=== PATIENT | female | born 1960 | race Caucasian/White ===

== ENCOUNTER 2018-01-21 16:18 | Inpatient (IN) | payer OTHER ==
[2018-01-21] MEDS ORDERED: IPRATROPIUM BROM 0.5MG/2.5ML ONE (17:24)
[2018-01-21] MEDS ORDERED: ALBUTEROL 2.5 MG/3 ML NEB SOL ONE (17:24)
[2018-01-21 17:28] LABS: Absolute Lymphocytes (CBC) 1.2 K/uL (0.7-4.9); Absolute Monocytes 0.5 K/uL (0.1-1.3); Absolute Neutrophil 6.4 K/uL (1.8-8.0); Eosinophils % 2.5 % (0-4.4); Hematocrit 40.2 % (36.0-45.0); Lymphocytes % 14.8 % (15.3-44.8); MCH 29.4 pg (27.0-35.0); MCV 90.5 fL (80-100); MPV 10.2 fL (7.6-11.3); Monocytes % 5.6 % (3.3-12.3); RBC Red Blood Cell Count 4.44 M/uL (3.86-4.86)
--- NOTE | 2018-01-21 17:32 | RAD REPORT ---
EXAM DESCRIPTION: RAD - Chest Single View - 01/21/2018 5:02 pm CLINICAL HISTORY: Bilateral lower extremity edema, shortness of breath, history of COPD and history of CHF COMPARISON: February 2017, May 2016 TECHNIQUE: AP portable chest image was obtained 1657 hours . FINDINGS: No peripheral mass or consolidation seen. However, interstitial markings are diffusely pro minent. Upper lobe vasculature is prominent. Pacemaker remains in place. Mild cardiomegaly is present . Heart size is similar to comparison. No pneumothorax or large pleural effusion. No gross bony abnor mality seen. No acute aortic findings suspected. IMPRESSION: Mild CHF/volume overload pattern similar to the February 2017 exam.
[2018-01-21 17:34] LABS: Protime INR 1.01
[2018-01-21 17:45] LABS: Albumin 3.2 g/dL (3.4-5.0); Bilirubin Direct 0.2 mg/dL (0-0.2); Bilirubin Total 0.4 mg/dL (0.2-1.0); CKMB Creatine Kinase MB 2.5 ng/mL (0.3-3.6); Magnesium 2.1 mg/dL (1.8-2.4); Potassium 4.3 mmol/L (3.5-5.1); Protein, Total 7.6 g/dL (6.4-8.2)
--- NOTE | 2018-01-21 18:33 | EDPHYS ---
Physician Documentation [facility] Name: Stephanie Romero Age: 57 yrs Sex: Female : 1960 Arrival Date: 01/21/2018 Time: 16:23 Bed 14 Private MD: ED Physician Eben Villasenor HPI: 01/21 16:48 This 57 yrs old Female presents to ER via EMS with complaints of Shortness Of cp Breath. 16:48 The patient has shortness of breath at rest. Onset: The symptoms/episode began/occurred cp yesterday, and became worse today. Duration: The symptoms are continuous, and are steadily getting worse. 16:48 Associated signs and symptoms: Pertinent negatives: productive cough, diaphoresis, cp fever. Historical: - Allergies: 16:30 Vicodin; jl7 - Home Meds: 17:46 bupropion HCl 300 mg Oral Tb24 1 tab once daily [Active]; duloxetine 60 mg Oral cpDR 1 jl7 cap once daily [Active]; furosemide 40 mg Oral tab 1 tab once daily [Active]; glimepiride 2 mg Oral tab 1 tab once daily [Active]; hydrochlorothiazide 25 mg Oral tab 1 tab once daily [Active]; levothyroxine 150 mcg tab 1 tab once daily [Active]; Lyrica Oral 200 mg 3 times per day [Active]; magnesium oxide 400 mg Oral tab [Active]; [place] 10-325 mg Oral tab 1 tab every 8 hours [Active]; omeprazole 40 mg Oral cpDR 1 cap once daily [Active]; ramipril 10 mg Oral cap 1 cap once daily [Active]; Senna Laxative 8.6 mg Oral tab 2 tabs once daily [Active]; tizanidine 4 mg Oral cap 1 cap 3 times per day [Active]; - PMHx: 16:30 CHF; COPD; Diabetes - NIDDM; Hypertension; Hypothyroidism; Pacemaker; jl7 - Immunization history:: Adult Immunizations not up to date. - Social history:: Smoking status: Patient/guardian denies using tobacco. - Ebola Screening: : No symptoms or risks identified at this time. ROS: 16:55 Constitutional: Negative for body aches, chills, fever, poor PO intake. cp 16:55 Eyes: Negative for injury, pain, redness, and discharge. cp 16:55 ENT: Negative for drainage from ear(s), ear pain, sore throat, difficulty swallowing, difficulty handling secretions. 16:55 Cardiovascular: Positive for edema, Negative for chest pain, palpitations. 16:55 Respiratory: Positive for shortness of breath, at rest. Negative for cough, hemoptysis, wheezing. 16:55 Abdomen/GI: Negative for abdominal pain, vomiting, diarrhea, constipation. 16:55 Back: Positive for pain at rest, pain with movement. 16:55 : Negative for urinary symptoms. 16:55 Skin: Negative for cellulitis, rash. 16:55 Neuro: Negative for altered mental status, headache, weakness. 16:55 All other systems are negative. Exam: 17:02 Constitutional: The patient appears in no acute distress, alert, awake, cp non-diaphoretic, non-toxic, well developed, well nourished, obese. 17:02 Head/Face: Normocephalic, atraumatic. cp 17:02 Eyes: Periorbital structures: appear normal, Pupils: equal, round, and reactive to light and accomodation, Extraocular movements: intact throughout, Conjunctiva: normal, no exudate, no injection, Lids and lashes: appear normal, bilaterally. 17:02 ENT: External ear(s): are unremarkable, Ear canal(s): are normal, clear, TM's: dullness, bilaterally, Nose: is normal, Mouth: Lips: moist, Oral mucosa: moist, Posterior pharynx: is normal, airway is patent, no erythema, no exudate. 17:02 Neck: ROM/movement: is normal, is supple, without pain, no range of motions limitations, no meningismus, no nuchal rigidity. 17:02 Chest/axilla: Inspection: normal, Palpation: is normal, no crepitus, no tenderness. 17:02 Cardiovascular: Rate: normal, Rhythm: regular, Edema: noted bilateral lower legs, JVD: is not appreciated. 17:02 Respiratory: the patient does not display signs of respiratory distress, Respirations: normal, no use of accessory muscles, no retractions, no splinting, no tachypnea, labored breathing, is not present, Breath sounds: decreased breath sounds, that are moderate, throughout, stridor, is not appreciated, wheezing: is not appreciated. 17:02 Abdomen/GI: Inspection: obese Bowel sounds: active, all quadrants, Palpation: abdomen is soft and non-tender, in all quadrants, rebound tenderness, is not appreciated, voluntary guarding, is not appreciated, involuntary guarding, is not appreciated. 17:02 Back: pain, that is mild, ROM is painful. 17:02 Skin: cellulitis, is not appreciated, no rash present. 17:02 Neuro: Orientation: to person, place \T\ time. Gait: not tested. paraplegia lower extremities. 17:04 ECG was reviewed by the Attending Physician. cp Vital Signs: 16:17 BP 121 / 84; Pulse 62; Resp 20 S; Temp 98.2(O); Pulse Ox 88% on R/A; Weight 117.93 kg jl7 (R); Height 5 ft. 5 in. (165.10 cm) (R); Pain 4/10; 16:30 BP 125 / 68; Pulse 63; Resp 20 S; Pulse Ox 96% on 4 lpm NC; jl7 17:00 BP 115 / 66; Pulse 59; Resp 20 S; Pulse Ox 93% on 4 lpm NC; jl7 17:30 BP 111 / 80; Pulse 60; Resp 20 S; Pulse Ox 100% on 4 lpm NC; jl7 17:45 BP 119 / 68; Pulse 62; Resp 20; Pulse Ox 100% on Nebulizer Mask; jl7 19:13 BP 131 / 67; Pulse 60; Resp 16 S; Pulse Ox 95% on 4 lpm NC; jd3 20:46 BP 119 / 74; Pulse 67; Resp 16 S; Pulse Ox 95% on 4 lpm NC; jd3 16:17 Body Mass Index 43.27 (117.93 kg, 165.10 cm) jl7 MDM: 16:37 Patient medically screened. cp 17:00 Differential diagnosis: CHF exacerbation, Chronic Obstructive Pulmonary Disease cp pneumonia, Pneumothorax pulmonary edema, Pulmonary Embolism Sepsis Unstable Angina. 17:55 Data reviewed: vital signs, nurses notes, lab test result(s), EKG, radiologic studies, cp plain films. 17:55 Test interpretation: by ED physician or midlevel provider: ECG, plain radiologic cp studies. 18:05 Physician consultation: Hilda Loomis MD was called at 18:05, was contacted at 18:05, regarding admission, to the telemetry unit. patient's condition. 07/18 16:44 Order name: Amylase, Serum; Complete Time: 17:47 cp /18 16:44 Order name: Blood Culture Adult (2) cp /18 16:44 Order name: BMP; Complete Time: 17:47 cp /18 17:47 Interpretation: Normal except: CO2 33; GLUC 112; BUN 30; GFR 73. cp /18 16:44 Order name: CBC with Diff; Complete Time: 17:37 cp /18 17:37 Interpretation: Normal except: RDW 16.0; RONALD% 76.1; LYM% 14.8. cp 07/18 16:44 Order name: Ckmb; Complete Time: 17:47 cp /18 16:44 Order name: CPK; Complete Time: 17:47 cp /18 16:44 Order name: Hepatic Function; Complete Time: 17:47 cp /18 17:47 Interpretation: Normal except: AST 11; ALB 3.2; GLOB 4.4; A/G 0.7. cp / 16:44 Order name: Lipase; Complete Time: 17:47 cp 01/21 16:44 Order name: Magnesium; Complete Time: 17:47 cp /18 16:44 Order name: NT PRO-BNP; Complete Time: 17:47 cp /18 18:00 Interpretation: Abnormal: NT PRO-BNP 1047. cp / 16:44 Order name: PT-INR; Complete Time: 17:47 cp /18 16:44 Order name: Ptt, Activated; Complete Time: 17:47 cp /18 16:44 Order name: Troponin (emerg Dept Use Only); Complete Time: 17:47 cp 18 18:30 Order name: Urine Dipstick--Ancillary (enter results); Complete Time: 19:51 / 19:51 Interpretation: Normal except: U NIT POSITIVE; UESTR TRACE. cp / 16:44 Order name: Urine Test (obtain specimen); Complete Time: 18:55 cp / 16:44 Order name: Larsen; Complete Time: 18:55 cp / 16:44 Order name: XRAY CXR (1 view); Complete Time: 17:37 cp 18 17:38 Interpretation: Report review. cp 01/21 16:44 Order name: EKG; Complete Time: 16:45 cp 01/21 16:44 Order name: Cardiac monitoring; Complete Time: 17:44 01/21 16:44 Order name: EKG - Nurse/Tech; Complete Time: 17:43 01/21 16:44 Order name: IV Saline Lock; Complete Time: 17:43 01/21 16:44 Order name: Labs collected and sent; Complete Time: 17:43 01/21 16:44 Order name: O2 Per Protocol; Complete Time: 17:43 01/21 16:44 Order name: O2 Sat Monitoring; Complete Time: 17:43 01/21 17:44 Order name: US Extremity Venous W Compression Augusto; Complete Time: 19:51 01/21 19:51 Interpretation: Report reviewed. 01/21 20:21 Order name: Troponin I EDMS 01/21 20:37 Order name: Urine Culture 01/21 16:44 Order name: Urine Dipstick-Ancillary (obtain specimen); Complete Time: 18:54 cp EC:04 Rate is 61 beats/min. Rhythm is regular. WV interval is normal at 144 msec. QRS cp interval is prolonged at 166 msec. QT interval is normal. Interpreted by me. Reviewed by me. Administered Medications: 17:25 Drug: Albuterol - atroVENT (3:1) (2.5 mg - 0.5 mg) 3 ml Route: Nebulizer; jl7 18:27 Follow up: Response: No adverse reaction jl7 19:12 Drug: Lasix 20 mg Route: IVP; Site: right hand; jd3 19:52 Follow up: Response: No adverse reaction jd3 20:01 Drug: Rocephin - (cefTRIAXone) 1 grams Route: IVPB; Infused Over: 30 mins; Site: right jd3 hand; 20:38 Follow up: Response: No adverse reaction; IV Status: Completed infusion jd3 Disposition: 01/21/18 18:32 Hospitalization ordered by Hilda Loomis for Inpatient Admission. Preliminary diagnosis are Unspecified combined systolic (congestive) and diastolic (congestive) heart failure, Hypoxemia, Urinary tract infection, site not specified. - Bed requested for Telemetry/MedSurg (Inpatient). - Status is Inpatient Admission. jd3 - Condition is Stable. - Problem is an acute exacerbation. - Symptoms have improved. UTI on Admission? Yes Addendum: 01/23/2018 20:02 Co-signature as Attending Physician, Eben Villasenor MD I agree with the assessment and w a plan of care. Signatures: Dispatcher [employer] EDMS Nayeli Garces RN RN Matthew Barahona PA PA cp Leal, Jahala RN RN jl7 Eben Villasenor MD MD wa Davies, Jonathon, RN RN jd3 Corrections: (The following items were deleted from the chart) 01/21 19:43 18:32 Hospitalization Ordered by Hilda Loomis MD for Inpatient Admission. Preliminary diagnosis is Unspecified combined systolic (congestive) and diastolic (congestive) heart failure; Hypoxemia. Bed requested for Telemetry/MedSurg (Inpatient). Status is Inpatient Admission. Condition is Stable. Problem is an acute exacerbation. Symptoms have improved. UTI on Admission? No. cp 20:38 19:43 01/21/2018 18:32 Hospitalization Ordered by Hilda Loomis MD for Inpatient cp Admission. Preliminary diagnosis is Unspecified combined systolic (congestive) and diastolic (congestive) heart failure; Hypoxemia. Bed requested for Telemetry/MedSurg (Inpatient). Status is Inpatient Admission. Condition is Stable. Problem is an acute exacerbation. Symptoms have improved. UTI on Admission? No. mw 20:58 20:38 01/21/2018 18:32 Hospitalization Ordered by Hilda Loomis MD for Inpatient jd3 Admission. Preliminary diagnosis is Unspecified combined systolic (congestive) and diastolic (congestive) heart failure; Hypoxemia; Urinary tract infection, site not specified. Bed requested for Telemetry/MedSurg (Inpatient). Status is Inpatient Admission. Condition is Stable. Problem is an acute exacerbation. Symptoms have improved. UTI on Admission? Yes. cp
--- NOTE | 2018-01-21 18:33 | ER ---
Nurse's Notes [facility] Name: Stephanie Romero Age: 57 yrs Sex: Female : 1960 Arrival Date: 01/21/2018 Time: 16:23 Bed 14 Private MD: Diagnosis: Unspecified combined systolic (congestive) and diastolic (congestive) heart failure;Hypoxemia;Urinary tract infection, site not specified Presentation: 01/21 16:23 Presenting complaint: EMS states: Pt c/o shortness of breath and bilateral lower jl7 extremity edema since Friday. She was 85% on RA, put on 4 lpm NC and increased to 94%. She is supposed to be taking Lasix but hasn't taken any in a few days due to some provider issues. Transition of care: patient was not received from another setting of care. Onset of symptoms was January 17, 2018. Risk Assessment: Do you want to hurt yourself or someone else? Patient reports no desire to harm self or others. Initial Sepsis Screen: Does the patient meet any 2 criteria? No. Patient's initial sepsis screen is negative. Does the patient have a suspected source of infection? No. Patient's initial sepsis screen is negative. Care prior to arrival: Medication(s) given: Albuterol Neb x 2, Atrovent Neb x 1, IV initiated. 20 GA, in the right forearm, Med neb given. 16:23 Method Of Arrival: EMS: [facility] 16:23 Acuity: SHAHRIAR 3 jl7 Triage Assessment: 16:30 General: Appears in no apparent distress. uncomfortable, Behavior is calm, cooperative, jl7 appropriate for age. Pain: Complains of pain in right leg and left leg Pain does not radiate. Pain currently is 4 out of 10 on a pain scale. Quality of pain is described as aching, Pain began 2-3 days ago. Is continuous. EENT: No signs and/or symptoms were reported regarding the EENT system. Neuro: Level of Consciousness is awake, alert, obeys commands, Oriented to person, place, time, situation. Cardiovascular: Heart tones S1 S2 present Patient's skin is warm and dry. Respiratory: Reports shortness of breath at rest since 01/17/18 Airway is patent Respiratory effort is even, unlabored, Respiratory pattern is regular, symmetrical, Breath sounds are clear bilaterally. Onset: The symptoms/episode began/occurred gradually, the patient has mild shortness of breath. GI: No signs and/or symptoms were reported involving the gastrointestinal system. : No signs and/or symptoms were reported regarding the genitourinary system. Derm: Skin is pink, warm \T\ dry. Musculoskeletal: No signs and/or symptoms reported regarding the musculoskeletal system. Historical: - Allergies: 16:30 Vicodin; jl7 - Home Meds: 17:46 bupropion HCl 300 mg Oral Tb24 1 tab once daily [Active]; duloxetine 60 mg Oral cpDR 1 jl7 cap once daily [Active]; furosemide 40 mg Oral tab 1 tab once daily [Active]; glimepiride 2 mg Oral tab 1 tab once daily [Active]; hydrochlorothiazide 25 mg Oral tab 1 tab once daily [Active]; levothyroxine 150 mcg tab 1 tab once daily [Active]; Lyrica Oral 200 mg 3 times per day [Active]; magnesium oxide 400 mg Oral tab [Active]; [place] 10-325 mg Oral tab 1 tab every 8 hours [Active]; omeprazole 40 mg Oral cpDR 1 cap once daily [Active]; ramipril 10 mg Oral cap 1 cap once daily [Active]; Senna Laxative 8.6 mg Oral tab 2 tabs once daily [Active]; tizanidine 4 mg Oral cap 1 cap 3 times per day [Active]; - PMHx: 16:30 CHF; COPD; Diabetes - NIDDM; Hypertension; Hypothyroidism; Pacemaker; jl7 - Immunization history:: Adult Immunizations not up to date. - Social history:: Smoking status: Patient/guardian denies using tobacco. - Ebola Screening: : No symptoms or risks identified at this time. Screenin:35 Abuse screen: Denies threats or abuse. Denies injuries from another. Nutritional jl7 screening: No deficits noted. Tuberculosis screening: No symptoms or risk factors identified. Fall Risk No fall in past 12 months (0 pts). Secondary diagnosis (15 points) impaired mobility, IV access (20 points). Ambulatory Aid- None/Bed Rest/Nurse Assist (0 pts). Gait- Normal/Bed Rest/Wheelchair (0 pts) Mental Status- Oriented to own ability (0 pts). Total Thomason Fall Scale indicates Low Risk Score (25-44 pts). Fall prevention measures have been instituted. Side Rails Up X 2 Placed close to Nursing Station Frequent Obs/Assesments occuring As available Patient and Family Educated on Fall Prevention Program and strategies. Assessment: 16:35 General: See triage assessment. Cardiovascular: Rhythm is ventricular pacer. 7 17:44 Reassessment: No changes from previously documented assessment. Patient and/or family 7 updated on plan of care and expected duration. Pain level reassessed. Patient is alert, oriented x 3, equal unlabored respirations, skin warm/dry/pink. 19:18 Reassessment: Patient appears in no apparent distress at this time. No changes from [facility] previously documented assessment. Patient and/or family updated on plan of care and expected duration. Pain level reassessed. Patient is alert, oriented x 3, equal unlabored respirations, skin warm/dry/pink. Patient states feeling better. 20:46 Reassessment: Patient appears in no apparent distress at this time. Patient and/or jd3 family updated on plan of care and expected duration. Pain level reassessed. Patient is alert, oriented x 3, equal unlabored respirations, skin warm/dry/pink. pt reported understanding on need for admission. Vital Signs: 16:17 BP 121 / 84; Pulse 62; Resp 20 S; Temp 98.2(O); Pulse Ox 88% on R/A; Weight 117.93 kg [facility] (R); Height 5 ft. 5 in. (165.10 cm) (R); Pain 4/10; 16:30 BP 125 / 68; Pulse 63; Resp 20 S; Pulse Ox 96% on 4 lpm NC; jl7 17:00 BP 115 / 66; Pulse 59; Resp 20 S; Pulse Ox 93% on 4 lpm NC; jl7 17:30 BP 111 / 80; Pulse 60; Resp 20 S; Pulse Ox 100% on 4 lpm NC; 7 17:45 BP 119 / 68; Pulse 62; Resp 20; Pulse Ox 100% on Nebulizer Mask; 7 19:13 BP 131 / 67; Pulse 60; Resp 16 S; Pulse Ox 95% on 4 lpm NC; jd3 20:46 BP 119 / 74; Pulse 67; Resp 16 S; Pulse Ox 95% on 4 lpm NC; jd3 16:17 Body Mass Index 43.27 (117.93 kg, 165.10 cm) [facility] ED Course: 16:17 Arm band placed on right wrist. jl7 16:23 Patient arrived in ED. jl7 16:28 Triage completed. jl7 16:31 Matthew Montana PA is PHCP. cp 16:31 Eben Villasenor MD is Attending Physician. cp 16:35 Patient has correct armband on for positive identification. Bed in low position. Call jl light in reach. Side rails up X 1. radiation monitor on. Pulse ox on. NIBP on. Warm blanket given. 16:35 Maintain EMS IV. Dressing intact. Good blood return noted. Site clean \T\ dry. Gauge \T\ jl 7 site: 20 right FA. 16:59 X-ray completed. Portable x-ray completed in exam room. Patient tolerated procedure kp1 well. 17:01 XRAY CXR (1 view) In Process Unspecified. EDMS 17:09 EKG done, by manufacturing technology professor. reviewed by Matthew BUCK. sm3 17:19 Elyse Evangelista, RN is Primary Nurse. hb 17:43 Gentry Cordoba, ADELA is Primary Nurse. jl7 18:04 Radiology exam delayed due to per nurse, stevens cath needing to be placed. ultrasound cy delayed. 18:31 Hilda Loomis MD is Hospitalizing Provider. cp 18:51 US Extremity Venous W Compression Augusto In Process Unspecified. EDMS 19:05 Report given to ADELA Tony. jl7 20:43 No provider procedures requiring assistance completed. Patient admitted, IV remains in jd3 place. Administered Medications: 17:25 Drug: Albuterol - atroVENT (3:1) (2.5 mg - 0.5 mg) 3 ml Route: Nebulizer; jl7 18:27 Follow up: Response: No adverse reaction jl7 19:12 Drug: Lasix 20 mg Route: IVP; Site: right hand; jd3 19:52 Follow up: Response: No adverse reaction jd3 20:01 Drug: Rocephin - (cefTRIAXone) 1 grams Route: IVPB; Infused Over: 30 mins; Site: right jd3 hand; 20:38 Follow up: Response: No adverse reaction; IV Status: Completed infusion jd3 Outcome: 18:32 Decision to Hospitalize by Provider. cp 20:43 Admitted to Med/surg accompanied by tech, via stretcher, room 430, with chart, Report jazalia called to Abbey CHAPMAN 20:43 Condition: stable 20:43 Instructed on the need for admit, Demonstrated understanding of instructions. 20:58 Patient left the ED. jd3 Signatures: Dispatcher [employer] EDMS Matthew Montana PA PA cp Baxter, Heather, RN RN Gentry Tomlin RN RN jl7 Bonny Pruett kp1 Donald Reyna RN RN Tiffani Licea Shakira 3 Corrections: (The following items were deleted from the chart) 21:08 20:46 Reassessment: Patient appears in no apparent distress at this time. Patient jazalia and/or family updated on plan of care and expected duration. Pain level reassessed. Patient is alert, oriented x 3, equal unlabored respirations, skin warm/dry/pink. jd3
[2018-01-21 18:36] LABS: Urine Blood NEGATIVE (NEG); Urine Glucose NEGATIVE (NEG); Urine Protein NEGATIVE (NEG); Urine Specific Gravity 1.025 (1.005-1.030); Urine pH 5.5 (5.0-7.0)
[2018-01-21] MEDS ORDERED: ALBUTEROL 2.5 MG/3 ML NEB SOL NEB PRN (19:04)
[2018-01-21] MEDS ORDERED: IPRATROPIUM BROM 0.5MG/2.5ML NEB PRN (19:04)
[2018-01-21] MEDS ORDERED: ONDANSETRON 4 MG/2 ML VIAL IV PRN (19:04)
[2018-01-21] MEDS ORDERED: FUROSEMIDE 20 MG/ 2ML VIAL ONE (19:05)
--- NOTE | 2018-01-21 19:06 | RAD REPORT ---
EXAM DESCRIPTION: VASExtrem Venous W Compress Bil01/21/2018 6:51 pm CLINICAL HISTORY: Bilateral leg swelling COMPARISON: 2016 FINDINGS: The common femoral, superficial femoral, popliteal and posterior tibial veins bilaterally are compressible and demonstrate augmentation. Doppler demonstrates good flow. Diffuse edema is present within the subcutaneous tissues IMPRESSION: No evidence of deep venous thrombosis involving either lower extremity.
[2018-01-21] MEDS ORDERED: CEFTRIAXONE/SWI 1gm 1 GM/10 ML SYR ONE (19:59)
[2018-01-22 00:08] LABS: Urine Appearance CLEAR; Urine Bilirubin NEGATIVE (NEG); Urine Blood NEGATIVE (NEG); Urine Color YELLOW; Urine Glucose NEGATIVE (NEG); Urine Protein NEGATIVE (NEG); Urine Specific Gravity 1.015 (1.005-1.030); Urine Urobilinogen 0.2 mg/dL (0.2-1.0); Urine pH 5.5 (5.0-7.0)
[2018-01-22 00:42] LABS: Urine Bacteria <20 /HPF (<20); Urine Culture Reflex Order NOT NEEDED; Urine RBC NONE SEEN /HPF (NONE SEEN)
[2018-01-22] MEDS: ACETAMINOPHEN 500 MG TAB PO PRN ×3 (02:12→17:18)
[2018-01-22 06:10] LABS: Potassium 4.2 mmol/L (3.5-5.1)
[2018-01-22 06:16] LABS: Absolute Lymphocytes (CBC) 1.6 K/uL (0.7-4.9); Absolute Monocytes 0.6 K/uL (0.1-1.3); Absolute Neutrophil 5.6 K/uL (1.8-8.0); Basophils % 0.9 % (0-1.3); Eosinophils % 3.8 % (0-4.4); Hematocrit 36.4 % (36.0-45.0); Lymphocytes % 19.8 % (15.3-44.8); MCH 30.4 pg (27.0-35.0); MCV 91.2 fL (80-100); MPV 10.6 fL (7.6-11.3); Monocytes % 7.1 % (3.3-12.3); RBC Red Blood Cell Count 3.99 M/uL (3.86-4.86)
[2018-01-22] MEDS: FUROSEMIDE 20 MG/ 2ML VIAL IV SCH ×2 (08:51→17:19)
[2018-01-22] MEDS: ENOXAPARIN 40 MG/0.4 ML SQ SCH (08:52)
--- NOTE | 2018-01-22 13:52 | EKG ---
Test Date: 2018-01-22 Test Time: 07:54:43 [place]: MODESTA MEASUREMENT RESULTS: Intervals: Rate: 56 MS: 192 QRSD: 180 QT: 516 QTc: 497 [place]: P: 71 MS: 192 QRS: -70 T: 89 INTERPRETIVE STATEMENTS: Sinus bradycardia Left axis deviation Nonspecific intraventricular block Lateral infarct, age undetermined Inferior infarct, age undetermined Abnormal ECG Compared to ECG 01/21/2018 16:59:41 Left-axis deviation now present Myocardial infarct finding now present Ventricular-paced complex(es) or rhythm no longer present Atrial-sensed ventricular-paced complex(es) or rhythm no longer present Electronically Signed On 01-22-18 13:51:43 CDT by Jaylen Macedo
--- NOTE | 2018-01-22 13:54 | EKG ---
Test Date: 2018-01-21 Test Time: 16:59:41 Director Medical: TEMI MEASUREMENT RESULTS: Intervals: Rate: 61 IL: 144 QRSD: 166 QT: 532 QTc: 535 Williams: P: 22 IL: 144 QRS: 128 T: -27 INTERPRETIVE STATEMENTS: Atrial-sensed ventricular-paced rhythm Abnormal ECG Compared to ECG 02/23/2017 03:08:42 Ventricular premature complex(es) no longer present Electronically Signed On 01-22-18 13:52:08 CDT by Jaylen Macedo
--- NOTE | 2018-01-22 15:22 | P.PN ---
Subjective Date of Service: 01/22/18 Chief Complaint: Shortness of breath, Lower extremity edema Subjective: Improving (Patient evaluated at bedside with nurse. Labs and imaging reviewed. The patient was admitted to the hospital for acute congestive heart failure. Patient stated that she is feeling better today after being started on Lasix and having oxygen. Stated that she has been noncompliant with her Lasix due to family situation.) <Nestor Mcpherson - Last Filed: 01/22/18 15:14> Date of Service: 01/22/18 <Belkys Torres - Last Filed: 01/22/18 15:32> Review of Systems 10-point ROS is otherwise unremarkable Respiratory: Shortness of Breath Cardiovascular: Edema <Joanne Mcphersonshua - Last Filed: 01/22/18 15:14> Physical Examination - Vital Signs Temperature: 97.2 F Blood Pressure: 118/65 Pulse: 56 Respirations: 18 Pulse Ox (%): 96 - Physical Exam General: Alert, In no apparent distress, Oriented x3, Cooperative HEENT: PERRLA, Mucous membr. moist/pink, EOMI Neck: Supple, 2+ carotid pulse no bruit, JVD not distended Respiratory: Clear to auscultation bilaterally Cardiovascular: Normal pulses, Regular rate/rhythm, Normal S1 S2, No gallops, No rubs, No murmurs, Edema Capillary refill: <2 Seconds Gastrointestinal: Normal bowel sounds, Soft and benign, Non-distended, No tenderness Musculoskeletal: No clubbing, No swelling, No contractures, No erythema, No tenderness, No warmth Integumentary: No rashes, No breakdown, No significant lesion Neurological: Normal speech, Normal strength at 5/5 x4 extr, Normal tone, Sensation intact, Cranial nerves 3-12 intact, Normal reflexes 2+, Normal affect - Studies Laboratory Data (last 24 hrs) 01/21/18 17:00: PT 11.9, INR 1.01, APTT 27.2 01/21/18 17:00: WBC 8.4, Hgb 13.0, Hct 40.2, Plt Count 176 01/21/18 17:00: Sodium 144, Potassium 4.3, BUN 30 H, Creatinine 0.80, Glucose 112 H, Magnesium 2.1, Total Bilirubin 0.4, AST 11 L, ALT 22, Alkaline Phosphatase 76, Amylase 30, Lipase 92 <Nestor Mcpherson - Last Filed: 01/22/18 15:14> - Studies Laboratory Data (last 24 hrs) 01/21/18 17:00: PT 11.9, INR 1.01, APTT 27.2 01/21/18 17:00: WBC 8.4, Hgb 13.0, Hct 40.2, Plt Count 176 01/21/18 17:00: Sodium 144, Potassium 4.3, BUN 30 H, Creatinine 0.80, Glucose 112 H, Magnesium 2.1, Total Bilirubin 0.4, AST 11 L, ALT 22, Alkaline Phosphatase 76, Amylase 30, Lipase 92 <Anant Torresmo - Last Filed: 01/22/18 15:32> Assessment And Plan - Current Problems (Diagnosis) (1) CHF exacerbation Onset Date: 01/22/18 Current Visit: Yes Status: Acute Qualifiers: Heart failure type: combined systolic and diastolic Qualified Code(s): I50.43 - Acute on chronic combined systolic (congestive) and diastolic ( congestive) heart failure (2) Acute renal failure Current Visit: No Status: Acute Qualifiers: Acute renal failure type: unspecified (3) Bradycardia Onset Date: 05/20/16 Current Visit: No Status: Chronic (4) COPD (chronic obstructive pulmonary disease) Onset Date: 04/24/16 Current Visit: No Status: Chronic Qualifiers: COPD type: unspecified COPD Qualified Code(s): J44.9 - Chronic obstructive pulmonary disease, unspecified (5) Diabetes Onset Date: 04/24/16 Current Visit: No Status: Chronic Qualifiers: Diabetes mellitus type: type 2 Diabetes mellitus termite treater helper insulin use: with termite treater helper use Diabetes mellitus complication status: without complication Qualified Code(s): E11.9 - Type 2 diabetes mellitus without complications; Z79.4 - termite treater helper (current) use of insulin (6) Edema of lower extremity Current Visit: No Status: Acute (7) Lymphedema Current Visit: No Status: Chronic - Plan Will continue oxygen in its duration via nasal cannula for the next 24 hr. We have increased her Lasix dose IV from 20 b.i.d. to 40 b.i.d.. After patient as been diuresed for 24 hr we will reassess to see if she is feeling better. Plan is to go home within 24 hr. No other acute findings patient feeling well otherwise. Discharge Plan: Home Plan to discharge in: 24 Hours <Nestor Mcpherson - Last Filed: 01/22/18 15:14> - Plan Case discussed with CIELO Elliott. Agree with above plan. <Belkys Torres - Last Filed: 01/22/18 15:32>
[2018-01-22] MEDS ORDERED: DIAZEPAM 2 MG TABLET PO PRN (18:42)
[2018-01-22] MEDS ORDERED: DOCUSATE NA/SENNA CONC 1 TAB PO PRN (18:42)
[2018-01-22] MEDS ORDERED: HYDROCODONE/APAP 10/325 TAB PO PRN (18:42)
[2018-01-22] MEDS: PREGABALIN 150 MG CAP PO SCH ×2 (21:00→21:24)
[2018-01-22] MEDS: PREGABALIN 50 MG CAP PO SCH (21:24)
[2018-01-23] MEDS: MELATONIN 5 MG TABLET PO SCH ×2 (01:12→21:00)
[2018-01-23] MEDS ORDERED: ALBUTEROL 2.5 MG/3 ML NEB SOL ONE (05:06)
[2018-01-23] MEDS ORDERED: IPRATROPIUM BROM 0.5MG/2.5ML ONE (05:06)
[2018-01-23] MEDS: PANTOPRAZOLE 40MG TABLET PO SCH (05:45)
[2018-01-23] MEDS: LEVOTHYROXINE SOD 0.075 MG TAB PO SCH (05:45)
[2018-01-23] MEDS: ENOXAPARIN 40 MG/0.4 ML SQ SCH (09:18)
[2018-01-23] MEDS: FUROSEMIDE 20 MG/ 2ML VIAL IV SCH ×2 (09:19→17:16)
[2018-01-23] MEDS: DULOXETINE 30 MG CAP PO SCH (09:19)
[2018-01-23] MEDS: GLIMEPIRIDE 2 MG TABLET PO SCH ×2 (09:19→17:16)
[2018-01-23] MEDS: RAMIPRIL 5 MG CAP PO SCH (09:20)
[2018-01-23] MEDS: PREGABALIN 50 MG CAP PO SCH ×3 (09:29→21:07)
[2018-01-23] MEDS: PREGABALIN 150 MG CAP PO SCH ×3 (09:29→21:07)
[2018-01-23] MEDS: ACETAMINOPHEN 500 MG TAB PO PRN ×2 (12:04→21:16)
[2018-01-23] MEDS: BUPROPION HCL XL 150 MG TAB PO SCH (12:33)
[2018-01-23 14:59] VITALS: BMI 50.8
[2018-01-23] MEDS ORDERED: FUROSEMIDE 20 MG/ 2ML VIAL IV ONE (15:27)
[2018-01-24] MEDS: ACETAMINOPHEN 500 MG TAB PO PRN ×3 (02:51→15:51)
[2018-01-24] MEDS: LEVOTHYROXINE SOD 0.075 MG TAB PO SCH (06:07)
[2018-01-24] MEDS: PANTOPRAZOLE 40MG TABLET PO SCH (06:07)
--- NOTE | 2018-01-24 06:17 | P.PN ---
Subjective Date of Service: 01/23/18 Chart reviewed. Patient suffered vertebral fracture and unable to ambulate since that time. She has been living at facilities but decided she does want stay at them anymore. She has home health arranged but does not feel like she is ready to go home. She has a wound on her lower back and she has a sebaceous cyst x2 that are draining. She says they are very painful however they do not look infected. Will keep her on oral antibiotics. May have surgery take a look at them. Will discuss with correctional case manager and see if she has everything ready for discharge. Possible discharge in the next 24-48 hrs Review of Systems 10-point ROS is otherwise unremarkable Physical Examination - Vital Signs Temperature: 96.7 F Blood Pressure: 123/64 Pulse: 62 Respirations: 18 Pulse Ox (%): 90 - Physical Exam General: Alert, In no apparent distress, Oriented x3 HEENT: Atraumatic, PERRLA, EOMI Neck: Supple, JVD not distended Respiratory: Clear to auscultation bilaterally, Normal air movement Cardiovascular: Regular rate/rhythm, Normal S1 S2 Gastrointestinal: Normal bowel sounds, Soft and benign, Non-distended, No tenderness Integumentary: Skin lesion, Erythema, Warmth Neurological: Normal affect - Studies Medications List Reviewed: Yes Assessment & Plan - Problems (Diagnosis) (1) Sebaceous cyst Current Visit: Yes Status: Acute (2) Vertebral fracture Current Visit: Yes Status: Acute (3) Osteoporosis Current Visit: Yes Status: Acute (4) CHF exacerbation Onset Date: 04/24/16 Current Visit: No Status: Acute Qualifiers: Qualified Code(s): I50.9 - Heart failure, unspecified (5) Edema of lower extremity Current Visit: No Status: Acute (6) Hypothyroidism Onset Date: 04/24/16 Current Visit: No Status: Acute Qualifiers: Hypothyroidism type: acquired Qualified Code(s): E03.9 - Hypothyroidism, unspecified (7) COPD (chronic obstructive pulmonary disease) Onset Date: 04/24/16 Current Visit: No Status: Chronic Qualifiers: COPD type: unspecified COPD Qualified Code(s): J44.9 - Chronic obstructive pulmonary disease, unspecified (8) Diabetes Onset Date: 04/24/16 Current Visit: No Status: Chronic Qualifiers: Diabetes mellitus type: type 2 Diabetes mellitus exterminator termite insulin use: with fpc use Diabetes mellitus complication status: without complication Qualified Code(s): E11.9 - Type 2 diabetes mellitus without complications; Z79.4 - [facility] (current) use of insulin - Plan Plan: 1. Conservative treatment until evaluation by Neurosurgery in 2-3 weeks 2. Arrange for discharge with home health in the next 24-48 hr 3. Painful sebaceous cyst which could be infected and will have General surgery see her 4. Continue with diuresing 5. Strict blood pressure and blood sugar control 6. GI and DVT prophylaxis - Advance Directives Does patient have a Living Will: No Does patient have a Durable POA for Healthcare: No - Code Status/Comfort Care Code Status Assessed: Yes Code Status: Full Code Critical Care: No Time Spent Managing PTS Care (In Minutes): 30
[2018-01-24 08:21] VITALS: O2SAT 92
[2018-01-24] MEDS: ENOXAPARIN 40 MG/0.4 ML SQ SCH (08:39)
[2018-01-24] MEDS: PREGABALIN 50 MG CAP PO SCH ×2 (08:39→13:30)
[2018-01-24] MEDS: GLIMEPIRIDE 2 MG TABLET PO SCH ×2 (08:39→17:45)
[2018-01-24] MEDS: DULOXETINE 30 MG CAP PO SCH (08:39)
[2018-01-24] MEDS: BUPROPION HCL XL 150 MG TAB PO SCH (08:39)
[2018-01-24] MEDS: RAMIPRIL 5 MG CAP PO SCH (08:40)
[2018-01-24] MEDS: FUROSEMIDE 20 MG/ 2ML VIAL IV SCH ×2 (08:41→17:00)
[2018-01-24] MEDS: PREGABALIN 150 MG CAP PO SCH ×2 (08:45→13:30)
[2018-01-24 11:49] LABS: Absolute Lymphocytes (CBC) 1.1 K/uL (0.7-4.9); Absolute Monocytes 0.5 K/uL (0.1-1.3); Absolute Neutrophil 5.7 K/uL (1.8-8.0); Basophils % 0.7 % (0-1.3); Eosinophils % 3.2 % (0-4.4); Hematocrit 38.2 % (36.0-45.0); Lymphocytes % 14.2 % (15.3-44.8); MCH 30.1 pg (27.0-35.0); MCV 91.8 fL (80-100); MPV 10.4 fL (7.6-11.3); Monocytes % 6.1 % (3.3-12.3); RBC Red Blood Cell Count 4.17 M/uL (3.86-4.86)
--- NOTE | 2018-01-24 11:54 | CON ---
Date of Consultation: 01/24/2018 Brief History Of Present Illness: The patient is a 57-year-old female, who presents to the hospital on 01/21, with complaints of shortness of breath. She was worked up and managed medically for this a nd is doing significantly better at this time. She was noted however to have a draining sebaceous cy st on the left upper back area and an additional sebaceous cyst was noted on the right upper back are a. Both were in the area of the scapula. She states that she had a family member squeeze out the le ft upper back cyst and a cheesy type material came out and she had significant improvement of the xi n that she had there, which was very minimal at worst. Past Medical History: Significant for CHF, COPD, diabetes, hypertension, hypothyroidism. Past Surgical History: She has a pacemaker. Allergies: TO VICODIN. Home Medications: Include bupropion, duloxetine, Lasix, glimepiride, hydrochlorothiazide, levothyrox ine, Lyrica, Mag-Ox, [place], omeprazole, ramipril, senna, tizanidine. Social History: She denies smoking, alcohol, recreational drug use. Review of Systems: A 10-point review of systems other than HPI, currently denies. Physical Examination: Vital Signs: BMI is 50.8. Blood pressure 123/64, pulse 62, respiratory rate 18, and temperature 96. 9. General: She is awake, alert, oriented. Psychiatric: She is appropriate and conversive. HEENT: She has nasal cannula oxygen on. She has some exophthalmos. Cardiovascular: Regular rate. Skin: Focused skin examination of the back, she has a very small punctate area of sebaceous cyst at the left upper shoulder area, less than a quarter of a centimeter in size. It has minimal cellulitic changes around it. No evidence of active infection or drainage. The right upper back sebaceous cys t appears evident without any evidence of drainage or evidence of infection. Laboratory Data: She had laboratory exam on the , which showed a white blood cell count of 8.2, hemoglobin is 12.2, hematocrit 36.4, and platelet count was 154. Assessment And Plan: This is a 57-year-old female with 2 sebaceous cysts of the upper back, 1 draini ng, 1 not. The right upper back cyst is draining slightly. I recommend continued wound care with chlorhexidine scrubbing daily and dry coverage of this area. T here does not appear to be any active infection at this time. Therefore, antibiotic coverage is not necessary. I have recommended that she follow up with me after medical optimization for excision of these on an elective basis as these are currently non-emergent cysts. I have explained the risks, be nefits, and alternatives of the above stated plan to the patient. She agrees to proceed as indicated . Thank you for this interesting consult. LEYDA/NASRIN Voice ID: [id number] Report ID: [id number]
[2018-01-24 12:10] LABS: Magnesium 1.9 mg/dL (1.8-2.4); Phosphorus 4.6 mg/dL (2.5-4.9); Potassium 4.4 mmol/L (3.5-5.1)
--- NOTE | 2018-01-24 13:52 | P.DS ---
Admission Date: 01/21/18 Discharge Date: 01/24/18 Disposition: ROUTINE DISCHARGE Discharge Condition: FAIR Reason for Admission: Shortness of breath, Lower extremity edema Consultations: Gen Surgery Brief History of Present Illness: 57-year-old female with significant past medical history who presented to the ED with dyspnea that has been going on for about 1-2 weeks was worsening over time and the she decided to come to the ER. In the ER patient was 85% on room air was put on 4 L of nasal cannula, which increased her in oxygen saturation to 94%. Patient stated that she was supposed to be taking 40 mg of Lasix however she has not been taking and had she has not been able to get a refill from her provider. Patient stated that she had total 90 day supply which she took and now she does not have any more refills. Patient does have a history of noncompliance in the past as well. Patient states that she has been not compliant with her diet of low sodium and her fluid restriction at this time as well. No other complaints to offer at this time. Patient denied having any nausea vomiting chest pain or any other associated symptoms. Denied having any fever chills as well. Hospital Course: Over the course of the hospital stay patient remained stable The patient was initially admitted to the hospital with dyspnea most likely secondary to her CHF exacerbation secondary to her not taking her medications. Patient was started on IV Lasix here in the hospital was doing much better after that. Patient initially was placed on IV Lasix 20 mg daily which was increased to 40 mg daily. Patient had adequate diuresis and thus her respiratory status improved along with bilateral lower leg and edema also improved. At that time patient was stable enough to be discharged home. Patient was also found to have sebaceous cyst in the back which are chronic in nature. General surgery was consulted in case he needs to be debrided. General surgery however recommended patient to be followed up outpatient and debridement to be done outpatient. Patient then was discharged home under stable condition. Patient was from a assisted before however it stated that she does not wish to go back to the assisted and thus would like to go home and thus was discharged home with home health. Patient has been working with a [facility] at the house along with care providers. Patient's boyfriend at this time is assisting patient at the house. Patient is mostly bed -bound after her workup she sustained 7 months ago. Has been like mentioned for working with rehab. Vital Signs/Physical Exam: Temp Pulse Resp BP Pulse Ox 97.2 F 52 18 97/56 L 92 01/24/18 12:00 01/24/18 12:00 01/24/18 12:00 01/24/18 12:00 01/24/18 12:00 General: Alert, In no apparent distress HEENT: Atraumatic, PERRLA, EOMI Neck: Supple, JVD not distended Respiratory: Clear to auscultation bilaterally, Normal air movement Cardiovascular: Regular rate/rhythm, Normal S1 S2 Gastrointestinal: Normal bowel sounds, No tenderness Musculoskeletal: No tenderness Integumentary: Skin lesion (Surely she cyst bilaterally and at the lower back area. No purulent discharge noted. The surrounding erythema noted however a mild in nature.) Neurological: Normal speech, Normal tone, Normal affect Lymphatics: No axilla or inguinal lymphadenopathy Laboratory Data at Discharge: WBC 7.5 K/uL (4.3-10.9) 01/24/18 11:32 Hgb 12.6 g/dL (12.0-15.0) 01/24/18 11:32 Hct 38.2 % (36.0-45.0) 01/24/18 11:32 Plt Count 150 K/uL (152-406) L 01/24/18 11:32 PT 11.9 SECONDS (9.5-12.5) 01/21/18 17:00 INR 1.01 01/21/18 17:00 APTT 27.2 SECONDS (24.3-36.9) 01/21/18 17:00 Sodium 140 mmol/L (136-145) 01/24/18 11:32 Potassium 4.4 mmol/L (3.5-5.1) 01/24/18 11:32 BUN 26 mg/dL (7-18) H 01/24/18 11:32 Creatinine 1.00 mg/dL (0.55-1.3) 01/24/18 11:32 Glucose 152 mg/dL (74-106) H 01/24/18 11:32 Phosphorus 4.6 mg/dL (2.5-4.9) 01/24/18 11:32 Magnesium 1.9 mg/dL (1.8-2.4) 01/24/18 11:32 Total Bilirubin 0.4 mg/dL (0.2-1.0) 01/21/18 17:00 AST 11 U/L (15-37) L 01/21/18 17:00 ALT 22 U/L (12-78) 01/21/18 17:00 Alkaline Phosphatase 76 U/L (45-117) 01/21/18 17:00 Troponin I 0.02 ng/mL (0.0-0.045) 01/22/18 00:21 Amylase 30 U/L (25-115) 01/21/18 17:00 Lipase 92 U/L (73-393) 01/21/18 17:00 Home Medications: Glimepiride 2 mg PO BID 04/23/16 Pregabalin [Lyrica] 200 mg PO TID 04/23/16 hydroCHLOROthiazide [Hydrochlorothiazide] 25 mg PO DAILY 04/23/16 Furosemide [Lasix] 40 mg PO DAILY #90 tablet 04/28/16 Bupropion HCl [Bupropion Xl] 300 mg PO DAILY 01/21/18 Hydrocodone Bit/Acetaminophen [[place] 10-325 Tablet] 1 tab PO Q8H PRN 01/21/18 Levothyroxine Sodium 150 mcg PO DAILY 01/21/18 Liraglutide [Victoza 2-Cr] 1.2 mg SQ DAILY 01/21/18 Melatonin 10 mg PO BEDTIME 01/21/18 Omeprazole [Prilosec] 40 mg PO DAILY 01/21/18 Ramipril [Altace*] 10 mg PO DAILY 01/21/18 Sennosides/Docusate Sodium [Senna Laxative Tablet] 2 each PO DAILY PRN 01/21/18 diazePAM [Diazepam] 1 tab PO QID PRN 01/21/18 Patient Discharge Instructions: Please f.u with PCP and Dr Barry in 1 to 2 week post discharge. No New medicaiton. Continue taking your lasix as precribed and Low NA diet with fluid restrictionof 1.5L Diet: Regular Activity: Ad monica Followup: Kyle Barry MD [ACTIVE - CAN ADMIT] - 1 Week
--- NOTE | 2018-01-24 13:57 | P.HP ---
Certification for Inpatient Patient admitted to: Observation With expected LOS: <2 Midnights Patient will require the following post-hospital care: None Practitioner: I am a practitioner with admitting privileges, knowledge of patient current condition, hospital course, and medical plan of care. Services: Services provided to patient in accordance with Admission requirements found in Title 42 Section 412.3 of the Code of Federal Regulations Patient History Date of Service: 01/21/17 Reason for admission: Shortness of breath, Lower extremity edema History of Present Illness: 57-year-old female with significant past medical history who presented to the ED with dyspnea that has been going on for about 1-2 weeks was worsening over time and the she decided to come to the ER. In the ER patient was 85% on room air was put on 4 L of nasal cannula, which increased her in oxygen saturation to 94%. Patient stated that she was supposed to be taking 40 mg of Lasix however she has not been taking and had she has not been able to get a refill from her provider. Patient stated that she had total 90 day supply which she took and now she does not have any more refills. Patient does have a history of noncompliance in the past as well. Patient states that she has been not compliant with her diet of low sodium and her fluid restriction at this time as well. No other complaints to offer at this time. Patient denied having any nausea vomiting chest pain or any other associated symptoms. Denied having any fever chills as well. Allergies No Known Allergies Allergy (Verified 01/21/18 23:29) Home Medications: Glimepiride 2 mg PO BID 04/23/16 Pregabalin [Lyrica] 200 mg PO TID 04/23/16 hydroCHLOROthiazide [Hydrochlorothiazide] 25 mg PO DAILY 04/23/16 Furosemide [Lasix] 40 mg PO DAILY #90 tablet 04/28/16 Bupropion HCl [Bupropion Xl] 300 mg PO DAILY 01/21/18 Hydrocodone Bit/Acetaminophen [[place] 10-325 Tablet] 1 tab PO Q8H PRN 01/21/18 Levothyroxine Sodium 150 mcg PO DAILY 01/21/18 Liraglutide [Victoza 2-Cr] 1.2 mg SQ DAILY 01/21/18 Melatonin 10 mg PO BEDTIME 01/21/18 Omeprazole [Prilosec] 40 mg PO DAILY 01/21/18 Ramipril [Altace*] 10 mg PO DAILY 01/21/18 Sennosides/Docusate Sodium [Senna Laxative Tablet] 2 each PO DAILY PRN 01/21/18 diazePAM [Diazepam] 1 tab PO QID PRN 01/21/18 - Past Medical/Surgical History Has patient received pneumonia vaccine in the past: Yes Diabetic: Yes -: Emphysema -: Thyroid disease -: Diabetes -: lymphedema -: COPD -: CHF -: HYPOTHYROIDISM -: 2 BROKEN BONES BACK -: 8 pound tumor removed -: PACEMAKER -: CERCLAGEX2 - Social History Smoking Status: Former smoker Alcohol use: Yes CD- Drugs: No Caffeine use: Yes Place of Residence: Home Review of Systems General: As per HPI Physical Examination - Vital Signs Temperature: 97.2 F Blood Pressure: 97/56 Pulse: 52 Respirations: 18 Pulse Ox (%): 92 - Physical Exam General: Alert, Oriented x3, Mild distress, Obese HEENT: Atraumatic Neck: Supple, 2+ carotid pulse no bruit, No LAD Respiratory: Normal air movement, Crackles/rales Cardiovascular: Regular rate/rhythm, Normal S1 S2 Gastrointestinal: Normal bowel sounds, Soft and benign, Non-distended, No tenderness Musculoskeletal: No tenderness Integumentary: No rashes Neurological: Normal speech, Abnormal strength, Abnormal tone Lymphatics: No axilla or inguinal lymphadenopathy Assessment and Plan - Problems (Diagnosis) (1) CHF exacerbation Onset Date: 01/22/18 Current Visit: Yes Status: Acute Plan: Acute on chronic congestive heart failure. Most likely secondary to medication noncompliance. -IV Lasix at this time. -low-sodium diet along with fluid restriction. -restart home medication at this time as well. If no improved. Will get cardiology consult. Qualifiers: Heart failure type: combined systolic and diastolic Qualified Code(s): I50.43 - Acute on chronic combined systolic (congestive) and diastolic ( congestive) heart failure (2) Sebaceous cyst Current Visit: Yes Status: Chronic Plan: Chronic sebaceous cysts in the back. Does not appear to be infected at this time. However will get general surgery consult for possible debridement if needed here in the hospital. Most likely patient will need outpatient workup and followup for this sebaceous cyst. (3) Vertebral fracture Current Visit: Yes Status: Chronic Plan: The patient has been mostly bed-bound ever since her vertebral fracture most likely secondary to chronic osteoporosis. Patient has been working with a [facility] for rehab. Will be returning home with the [facility] for further needs. Qualifiers: Encounter type: sequela Fracture of vertebra location: lumbar Lumbar vertebra fracture level: unspecified lumbar vertebra Fracture type: closed Fracture morphology: unspecified fracture morphology Qualified Code(s): S32.009S - Unspecified fracture of unspecified lumbar vertebra, sequela (4) Edema of lower extremity Current Visit: No Status: Chronic Plan: Most likely secondary to acute worsening of CHF versus lymphedema. -IV Lasix for now (5) Tobacco abuse counseling Onset Date: 04/24/16 Current Visit: No Status: Chronic (6) COPD (chronic obstructive pulmonary disease) Onset Date: 04/24/16 Current Visit: No Status: Chronic Qualifiers: COPD type: unspecified COPD Qualified Code(s): J44.9 - Chronic obstructive pulmonary disease, unspecified (7) Diabetes Onset Date: 04/24/16 Current Visit: No Status: Chronic Qualifiers: Diabetes mellitus type: type 2 Diabetes mellitus intermediate accountant insulin use: with intermediate accountant use Diabetes mellitus complication status: without complication Qualified Code(s): E11.9 - Type 2 diabetes mellitus without complications; Z79.4 - detention (current) use of insulin Discharge Plan: Home Plan to discharge in: 48 Hours - Advance Directives Does patient have a Living Will: No Does patient have a Durable POA for Healthcare: No - Code Status/Comfort Care Code Status Assessed: Yes Critical Care: No
[2018-01-24 20:37] VITALS: BP 115/56; TEMP 96.8
== END 2018-01-24 20:30 | disposition home health service (06) | DRG 292 ==
LOC: ER 16:18 → ERHOLD 18:32 → 4TH 20:51
PROVIDERS: ADMIT Family Medicine; ATTEND Family Medicine
DX: I11.0 Hypertensive heart disease with heart failure (principal); N17.9 Acute kidney failure, unspecified; I50.43 Acute on chronic combined systolic (congestive) and diastolic (congestive) heart failure; T50.1X6A Underdosing of loop [high-ceiling] diuretics, initial encounter; Z91.138 Patient's unintentional underdosing of medication regimen for other reason; Z91.11 Patient's noncompliance with dietary regimen; Z79.84 Long term (current) use of oral hypoglycemic drugs; J43.9 Emphysema, unspecified; E11.9 Type 2 diabetes mellitus without complications; L72.3 Sebaceous cyst; M80.08XS Age-related osteoporosis with current pathological fracture, vertebra(e), sequela; Z74.01 Bed confinement status; Z99.81 Dependence on supplemental oxygen; E03.9 Hypothyroidism, unspecified; I89.0 Lymphedema, not elsewhere classified; Z95.0 Presence of cardiac pacemaker; Z87.891 Personal history of nicotine dependence
CPT/HCPCS: 36415; 71045; 80048; 80076; 81001; 81003; 82150; 82550; 82553; 82962; 83690; 83735; 83880; 84100; 84484; 85025; 85610; 85730; 87040; 87086; 87088; 93005; 93970; 94640; 96365; 96375; 99285; J0696; J1650; J1940; J2405